=== PATIENT | female | born 1950 | race Caucasian/White ===

== ENCOUNTER 2024-11-22 06:25 | Day surgery (SDC) | payer OTHER, SELFPAY ==
[2024-11-19 11:52] LABS: Hematocrit 40.7 % (37.0-47.0); Hemoglobin 13.5 g/dL (12.0-16.0); Mean Corp Hgb Conc. 33.2 g/dL (33.0-37.0); Mean Corpuscular Volume 92.7 fL (81.0-99.0); Nucleated Red Blood Cells % 0 %; Platelet Count 422 10^3/uL (130-400); Red Cell Dist. Width 13.7 % (11.5-14.5)
[2024-11-19 12:40] LABS: Blood Urea Nitrogen 13 mg/dl (7-17); Calcium 9.5 mg/dl (8.4-10.2); Carbon Dioxide 27 mmol/L (22-30); Chloride 102 mmol/L (98-107); Glucose 96 mg/dl (70-99); Potassium 4.7 mmol/L (3.5-5.1); Sodium 136 mmol/L (135-145); eGFR > 60.00
[2024-11-19 13:49] VITALS: BMI 27.8
[2024-11-22] VITALS (8 sets, daily range): BP systolic 113–141; BP diastolic 51–84; BMI 27.8
[2024-11-22 07:18] LABS: Glucose - Point of Care 105 mg/dl (70-99)
[2024-11-22] MEDS: CELEBREX 200 MG PO (07:30)
[2024-11-22] MEDS: TYLENOL 1000 MG PO (07:30)
[2024-11-22] MEDS: NORMOSOL-R/PLASMALYTE-A 1000 IV (07:34)
[2024-11-22 10:54] LABS: Glucose - Point of Care 142 mg/dl (70-99)
== END 2024-11-22 13:30 | disposition home or self-care (01) ==
LOC: SDS 06:25
PROVIDERS: ATTENDING PHYSICIAN Orthopaedic Surgery; FAMILY PHYSICIAN Family Medicine
DX: M75.121 Complete rotator cuff tear or rupture of right shoulder, not specified as traumatic (principal)
CPT/HCPCS: 29827; 29823; 36415; 80048; 82962; 85025; 93005; C1713